=== PATIENT | female | born 1980 | race Caucasian/White ===

== ENCOUNTER 2016-06-01 17:56 | Inpatient (IN) | payer BC ==
[~2016-06-01] VITALS: Ht 167.6 cm; Wt 68.0 kg
[2016-06-01] VITALS (22 sets, daily range): BP systolic 122; BP diastolic 76; PULSE 84–101; RESP 18; TEMP 97.8
[2016-06-01] MEDS: LACTATED RINGER'S 1000 ML INJ 1,000 ML IV SCH (18:00)
[2016-06-01 19:56] LABS: AUTOMATED NEUTROPHIL # 7.5 TH/MM3 (1.8-7.7); BASOPHIL % 0.4 % (0.0-2.0); EOSINOPHIL # 0.1 TH/MM3 (0-0.4); EOSINOPHIL % 1.5 % (0.0-4.0); HEMATOCRIT 41.5 % (35.0-46.0); HEMO FLAGS DIFF FINAL; LYMPH % 17.3 % (9.0-44.0); LYMPHOCYTE # 1.7 TH/MM3 (1.0-4.8); MEAN CELL VOLUME 92.6 FL (80.0-100.0); MEAN CORPUSCULAR HEMOGLOBIN 32.5 PG (27.0-34.0); MONO % 6.1 % (0.0-8.0); NEUT % 74.7 % (16.0-70.0); PLATELET COUNT 109 TH/MM3 (150-450); RED BLOOD COUNT 4.48 MIL/MM3 (4.00-5.30); RED CELL DISTRIBUTION WIDTH 13.3 % (11.6-17.2)
[2016-06-01] MEDS ORDERED: FOLI5CAP PO (20:02)
[2016-06-01] MEDS ORDERED: PREN29TA PO (20:02)
[2016-06-01 20:03] LABS: BACTERIA, URINE RARE /hpf; BLOOD, URINE NEG (NEG); COMMENT (UR) CULT NOT INDICATED; CULTURE IF INDICATED CULT NOT INDICATED; GLUCOSE,URINE NEG (NEG); KETONE, URINE NEG (NEG); MUCUS URINE FEW /lpf (OCC); NITRITE,URINE NEG (NEG); PH, URINE 6.5 (5.0-8.5); SQUAMOUS EPITHELIAL CELL URINE <1 /hpf (0-5); URINE COLOR LIGHT-YELLOW (YELLW/STRAW)
--- NOTE | 2016-06-01 20:13 | HHI.HP ---
HPI Chief Complaint post due, for labor induction Date Seen: Jun 01, 2016 Time Seen: 20:00 Travel History International Travel<30 Days: No Contact w/Intl Traveler<30Days: No Known Affected Area: No History of Present Illness HPI 36 yo with EDC 05/29/16 by 8 wk sonogram, presents to L&D for scheduled post term induction. Pt's has been complicated by limb reduction of left arm (no L hand, short radius and ulna), no other abnormalities noted. Pt was seen by MFM, declined amniocentesis, cfdna was negative as was msAFP. Per MFM, suspect early amniotic band that resolved. echo wnl as has been growth, testing beginning at 36 weeks has been reassuring. Pt had been on Celexa prior to finding out she was but stopped in early first trimester once had positive test. Fetus is female. Pt c/o some pelvic pressure and cramps but no regular contractions, no VB or LOF. Endorses good movement. Only other significant history is advanced maternal age, varicella non-immune, and anterior accessory placental lobe (posterior placenta). Para: 0 : 1 Last Menstrual Period: Aug 30, 2015 Miscarriage: 0 : 0 History Past Medical History Narrative Medical history of anxiety varicella non-immune advanced maternal age in Obstetric History Obstetric History G1 = current, female, known L upper extremity limb reduction Past Surgical History Narrative Surgical rhinoplasty, wisdom teeth, dysplastic nevi (skin biopsy) Family History Family History: Negative Social History Alcohol Use: No Tobacco Use: No Substance Abuse: No Review of Systems General / Constitutional: Weight Gain, No: Fever, Chills, Other Eyes: No: Diploplia, Blurred Vision, Visual changes, Pain, Photophobia HENT: No: Headaches, Vertigo, Lightheadedness Cardiovascular: No: Irregular Rhythm, Chest Pain or Discomfort, Palpitations, Tachycardia, Syncope, Varicosities, Edema, Cyanosis Respiratory: No: Cough, Short of Breath, Other Gastrointestinal: No: Nausea, Vomiting, Diarrhea Genitourinary: Pelvic Pain (pressure), No: Decreased Urinary Output, Oliguria Musculoskeletal: No: Limited ROM, Weakness, Cramping, Edema, Pain Skin: No Rash, No Itching, No Dryness, No Lumps, No Change in Pigmentation, No Change in Nails, No Alopecia, No Lesions Neurologic: No: Weakness, Dizziness, Syncope, Focal Abnormalities, Coordination Problem, Headache, Slurred Speech, Seizures Psychiatric: No: Depression, Suicidal Ideations, Homicidal Ideation Endocrine: No: Heat Intolerance, Cold Intolerance, Polydipsia, Polyuria, Other Physical Exam Narrative GENERAL: Well-nourished, well-developed patient. SKIN: Warm and dry. HEAD: Normocephalic and atraumatic. EYES: No scleral icterus. No injection or drainage. ENT: No nasal drainage noted. Mucous membranes pink. Airway patent. NECK: Supple, trachea midline. No JVD. CARDIOVASCULAR: Regular rate and rhythm without murmurs, gallops, or rubs. RESPIRATORY: Breath sounds equal bilaterally. No accessory muscle use. BREASTS: deferred. ABDOMEN/GI: Abdomen soft, non-tender, bowel sounds present, no rebound, no guarding Gravid to [40] weeks size Fundal Height: [40] GENITOURINARY: External Genitalia: intact and normal in appearance Cervix: [mid] Dilatation: [1-2] Effacement: [50] Station: [-2] Presentation: [vtx] Membranes: [intact] Uterine Contractions: [irritability] FHT's: Category: [I] Baseline: [120s-130s] Reactive: [y] Variability: [y] Decels: [n] EXTREMITIES: No cyanosis or edema. BACK: Nontender without obvious deformity. No CVA tenderness. NEUROLOGICAL: Awake and alert. Motor and sensory grossly within normal limits. Five out of 5 muscle strength in all muscle groups. Normal speech. Data Data Vital Signs Reviewed: Yes Orders Diet Regular Basic (06/01/16 Dinner) Diet Liquid (06/02/16 Breakfast) Activity Oob Ad Carin (06/01/16 19:44) ^ Labor Induction (06/01/16 19:44) ^ Vaginal Insert (06/01/16 19:44) ^ Vaginal Lavage (06/01/16 19:44) ^ Heart (06/01/16 19:44) Code Status (06/01/16 19:44) Vital Signs (Adult) .Per protocol (06/01/16 19:44) Activity Oob Ad Carin (06/01/16 19:44) ^ Heart (06/01/16 19:44) ^ Amnioinfusion (06/01/16 19:44) Urinary Catheter Management .ONCE (06/01/16 19:44) Complete Blood Count With Diff (06/01/16 19:44) Hold Clot (06/01/16 19:44) Abo/Rh Blood Type (06/01/16 19:44) Urinalysis - C+S If Indicated (06/01/16 19:44) Resp Oxygen Non Rebreathe Mask (06/01/16 ) ^ Epidural / Intrathecal Infus (06/01/16 19:44) Specimen To Be Collected PRN (06/01/16 19:44) Labs Laboratory Tests Test 06/01/16 18:15 White Blood Count 10.0 Red Blood Count 4.48 Hemoglobin 14.5 Hematocrit 41.5 Mean Corpuscular Volume 92.6 Mean Corpuscular Hemoglobin 32.5 Mean Corpuscular Hemoglobin 35.0 Concent Red Cell Distribution Width 13.3 Platelet Count 109 Mean Platelet Volume 11.1 Neutrophils (%) (Auto) 74.7 Lymphocytes (%) (Auto) 17.3 Monocytes (%) (Auto) 6.1 Eosinophils (%) (Auto) 1.5 Basophils (%) (Auto) 0.4 Neutrophils # (Auto) 7.5 Lymphocytes # (Auto) 1.7 Monocytes # (Auto) 0.6 Eosinophils # (Auto) 0.1 Basophils # (Auto) 0.0 CBC Comment DIFF FINAL Differential Comment Assessment/Plan Problem List: (1) Post term over 40 weeks (2) Labor and delivery indication for care or intervention (3) complicated by limb abnormality Assessment and Plan 36 yo with EDC 05/29/16, admit for postterm labor induction 1) IOL: r/b/a d/w pt including risk of failure, AQA, pt desires labor induction ; start with cervidil overnight, AROM/pitocin as needed; Cat I tracing currently 2) known L upper limb reduction: normal genetic testing, normal ECHO , no other abnormalities; s/p MFM consult; suspect early amniotic band that resolved; reassuring testing and growth throughout 3) GBS neg 4) AMA: neg cfDNA, neg msAFP, normal echo, abnormal L upper arm, absent hand, reduced radius & ulna 5) status: female, vertex, posterior placenta with anterior accessory lobe , Cat I tracing currently; most recent EFW on u/s 49%tile at 36 wks Discharge Planning routine for 2 days Mavis Rea MD Jun 01, 2016 20:13
[2016-06-01] MEDS ORDERED: ZOLPIDEM TARTRATE 5 MG TAB PO PRN (20:15)
[2016-06-01] MEDS ORDERED: DINOPROSTONE 10 MG INSERT-LEAVE FOR 12 HOURS VAGINAL ONE (20:15)
[2016-06-01] MEDS ORDERED: NS 1000 ML XX PRN (20:15)
[2016-06-01] MEDS ORDERED: MINERAL OIL 10 ML VIAL TOPICAL PRN (20:30)
[2016-06-01] MEDS ORDERED: OXYTOCIN 30 UNITS 500ML PREMIX IV ONE (20:30)
[2016-06-01] MEDS: LACTATED RINGER'S 1000 ML IV SCH (20:30)
[2016-06-01] MEDS ORDERED: LIDOCAINE HCL 1% 50 ML VIAL I-DERMAL PRN (20:30)
[2016-06-01] MEDS ORDERED: NS 1000 ML IV PRN (20:30)
[2016-06-01] MEDS ORDERED: LIDOCAINE HCL 1% 50 ML VIAL INFIL PRN (20:30)
[2016-06-01] MEDS ORDERED: NS 500 ML BOLUS IV PRN (20:30)
[2016-06-01] MEDS ORDERED: CITRIC ACID-SODIUM CITRATE LIQ 30 ML UDC PO SCH (20:30)
[2016-06-01] MEDS ORDERED: LACTATED RINGER'S 1000 ML BOLUS IV PRN (20:30)
[2016-06-01] MEDS ORDERED: ONDANSETRON HCL 4 MG/2 ML VIAL IV PRN (20:30)
[2016-06-02] VITALS (138 sets, daily range): BP systolic 94–138; BP diastolic 49–96; PULSE 68–115; RESP 16–18; TEMP 97.5–98.9
[2016-06-02] MEDS: LACTATED RINGER'S 1000 ML INJ 1,000 ML IV SCH ×2 (03:43→16:00)
--- NOTE | 2016-06-02 08:55 | PD.LABORPN ---
Subjective Subjective feeling more intense contractions overnight with cervidil but still irregular, pain 4/10; no LOF, VB, good FM Objective Vital Signs Vital Signs Date Time Temp Pulse Resp B/P Pulse Ox O2 Delivery O2 Flow Rate FiO2 06/02/16 07:30 90 06/02/16 07:29 97.8 06/02/16 07:20 86 06/02/16 07:15 84 06/02/16 07:12 88 113/77 06/02/16 07:10 87 06/02/16 07:05 71 06/02/16 07:00 76 06/02/16 06:10 74 06/02/16 06:05 68 06/02/16 06:00 77 06/02/16 05:25 74 06/02/16 05:20 75 06/02/16 05:15 75 06/02/16 04:09 18 06/02/16 03:15 18 06/02/16 01:38 18 Objective Pelvic Exam: Cervix: [post] Dilatation: [3-4] Effacement: [70] Station: [-1] Presentation: [vtx] Membranes: AROM'd clear this check Uterine Contractions: [q3-4 min] FHT's: Category: [I] Baseline: [130s-140s] Reactive: [y] Variability: [y] Decels: [n] Assessment/Plan Problem List: (1) Post term over 40 weeks (2) Labor and delivery indication for care or intervention (3) complicated by limb abnormality Assessment and Plan 36 yo G1 at 40w4d admit for postdates IOL 1) IOL: s/p cervidil overnight with good cervical change, AROM'd this check, plan pitocin as needed 2) fetus with known L upper limb reduction: s/p MFM consult, suspect early amniotic band that resolved, L arm missing hand & limited radius/ulna; normal testing, normal ECHO, negative cfDNA & msAFP 3) AMA: as above 4) GBS neg 5) status: female, vertex, Cat I tracing Mavis Rea MD Jun 02, 2016 08:55
[2016-06-02] MEDS ORDERED: OXYTOCIN 30 UNITS-500ML PREMIX 500 ML IV SCH (09:00)
[2016-06-02] MEDS ORDERED: fentaNYL 2MCG-BUPIV 0.125% INJ 100 ML ONE (10:54)
[2016-06-02] MEDS: LACTATED RINGER'S 1000 ML IV SCH (11:06)
[2016-06-02] MEDS ORDERED: ePHEDrine/NS 25 MG/5 ML SYR ONE (11:57)
--- NOTE | 2016-06-02 12:34 | PD.LABORPN ---
Subjective Subjective was feeling intense pain with contractions, improved s/p epidural Objective Vital Signs Vital Signs Date Time Temp Pulse Resp B/P Pulse Ox O2 Delivery O2 Flow Rate FiO2 06/02/16 12:25 96 129/82 06/02/16 12:20 95 118/73 06/02/16 12:15 97 06/02/16 12:15 94 122/73 06/02/16 12:15 85 06/02/16 12:10 95 06/02/16 12:10 95 06/02/16 12:10 95 124/71 06/02/16 12:05 89 138/96 06/02/16 12:05 97 06/02/16 12:05 88 06/02/16 12:00 94 135/85 06/02/16 12:00 93 06/02/16 11:55 84 06/02/16 11:55 84 06/02/16 11:50 85 06/02/16 11:50 84 06/02/16 11:45 93 06/02/16 11:45 88 06/02/16 11:45 87 131/88 06/02/16 11:40 87 06/02/16 11:40 87 06/02/16 11:37 90 132/83 06/02/16 11:35 82 06/02/16 11:35 86 06/02/16 11:25 82 06/02/16 11:25 82 06/02/16 11:20 89 06/02/16 11:20 88 06/02/16 11:15 88 112/66 06/02/16 11:15 87 06/02/16 11:08 18 06/02/16 11:05 93 119/71 06/02/16 11:05 98 06/02/16 11:02 112 06/02/16 11:00 93 06/02/16 10:40 91 06/02/16 10:35 96 06/02/16 10:30 98 06/02/16 10:25 91 18 06/02/16 10:21 102 124/86 06/02/16 10:20 100 06/02/16 10:15 96 06/02/16 09:40 94 06/02/16 09:35 95 06/02/16 09:30 96 06/02/16 09:25 90 06/02/16 09:20 96 06/02/16 09:10 94 06/02/16 09:07 106 121/78 06/02/16 09:06 98.0 18 06/02/16 09:05 104 06/02/16 09:00 90 06/02/16 08:55 89 06/02/16 08:50 88 06/02/16 08:45 101 06/02/16 07:30 90 06/02/16 07:29 97.8 06/02/16 07:20 86 06/02/16 07:15 84 06/02/16 07:12 88 113/77 06/02/16 07:10 87 06/02/16 07:05 71 06/02/16 07:00 76 06/02/16 06:10 74 06/02/16 06:05 68 06/02/16 06:00 77 06/02/16 05:25 74 06/02/16 05:20 75 06/02/16 05:15 75 Objective Pelvic Exam: Cervix: [post] Dilatation: [5-6, stretchy] Effacement: [70] Station: [-1] Presentation: [vtx] Membranes: [AROM'd this AM clear] Uterine Contractions: [q2 min] FHT's: Category: [I] Baseline: [130s] Reactive: [y] Variability: [y] Decels: [n] Assessment/Plan Problem List: (1) Post term over 40 weeks (2) Labor and delivery indication for care or intervention (3) complicated by limb abnormality Assessment and Plan progressing well in labor continue to augment as needed s/p epidural anticipate Mavis Rea MD Jun 02, 2016 12:34
[2016-06-02] MEDS ORDERED: NO SYSTEM NARCOTICS PRN (13:00)
[2016-06-02] MEDS ORDERED: ePHEDrine/NS 25 MG/5 ML SYR IV PRN (13:00)
[2016-06-02] MEDS ORDERED: DO NOT ADMINISTER ANTICOAGULANTS PRN (13:00)
[2016-06-02] MEDS ORDERED: fentaNYL 2MCG-BUPIV 0.125% 100 ML EPIDURAL SCH (13:00)
[2016-06-02] MEDS ORDERED: DIPHTH/TETANUS/ACEL PERTUSSIS (BOOSTER) 0.5 ML VIAL/PFS IM ONE (16:00)
[2016-06-02] MEDS ORDERED: MEASLES, MUMPS, RUBELLA VACCINE 0.5 ML VIAL SQ ONE (16:00)
[2016-06-02] MEDS ORDERED: IBUP-232 PO (21:01)
[2016-06-02] MEDS ORDERED: PERI8.6T PO (21:01)
--- NOTE | 2016-06-02 21:49 | HHI.DCPOC ---
Discharge Care Plan Diagnosis: (1) (spontaneous vaginal delivery) Your Health Problems Are: Vaginal delivery Report Symptoms to Your Doctor -Temperate above 100.5 degrees -Redness, of incision or excessive or foul smelling drainage -Unusual pain or calf pain -Increased vaginal bleeding -Painful or difficulty urinating -Feelings of extreme sadness or anxiety after 2 weeks Goals to Promote Your Health * To prevent worsening of your condition and complications * To maintain your health at the optimal level Directions to Meet Your Goals Take your medications as prescribed Follow your dietary instruction Follow activity as directed Ensure plenty of rest for recovery Drink fluids for hydration Keep your appointments as scheduled Take your immunizations and boosters as scheduled If your symptoms worsen call your PCP, if no PCP go to Urgent Care Center or Emergency Room Smoking is Dangerous to Your Health. Avoid second hand smoke Call the 24-hour crisis hotline for domestic abuse at Mavis Rea MD Jun 02, 2016 21:49
--- NOTE | 2016-06-02 21:53 | PD.OB.DELI ---
Delivery Date: Jun 02, 2016 Anesthesia: Epidural Episiotomy: Midline Vaginal Delivery: Normal Presentation: Occiput anterior Nuchal Cord: None Delayed cord clamping (45 sec): Yes : Female, Single One Minute : 9 Five Minute : 9 Weight: pending Infant Care: Spontaneous crying, Responded to stimulation, Other (see Peds notes) Placenta: Spontaneous delivery, Intact (bilobed with cord noted to be inserted near placental margin), 3 vessel cord Laceration: Episiotomy (midline 2nd degree perineal) Repair: Chromic running Additional Information EBL 300 mL infant with known L upper limb reduction; mobile with palpable upper 1/3 of radius/ulna on delivery, normal mobility of elbow Mavis Rea MD Jun 02, 2016 21:53
[2016-06-02] MEDS ORDERED: ZOLPIDEM TARTRATE 5 MG TAB PO PRN (22:00)
[2016-06-02] MEDS ORDERED: BENZOCAINE 20% TOPICAL SPRAY 60 ML CAN TOPICAL PRN (22:00)
[2016-06-02] MEDS ORDERED: ACETAMINOPHEN 325 MG TAB PO PRN (22:00)
[2016-06-02] MEDS ORDERED: SODIUM CHLORIDE 0.9% FLUSH 10 ML FLUSH IV FLUSH SCH (22:00)
[2016-06-02] MEDS ORDERED: WITCH HAZEL 50%/GLYCERIN 12.5% 40 PAD JAR TOPICAL PRN (22:00)
[2016-06-02] MEDS ORDERED: ALUMINUM/MAGNESIUM/SIMETH 30 ML CUP PO PRN (22:00)
[2016-06-02] MEDS ORDERED: ONDANSETRON ODT 4 MG TAB PO PRN (22:00)
[2016-06-02] MEDS ORDERED: SODIUM CHLORIDE 0.9% FLUSH 10 ML FLUSH IV FLUSH PRN (22:00)
[2016-06-03] MEDS: IBUPROFEN 600 MG TAB PO PRN ×4 (00:39→19:28)
[2016-06-03 01:30] VITALS: BP 102/69; PULSE 96; RESP 18; TEMP 97.9
[2016-06-03] MEDS: DOCUSATE SODIUM 50 MG/SENNA 8.6 MG TAB PO PRN (01:46)
[2016-06-03 08:00] VITALS: BP 87/61; PULSE 81; RESP 16; TEMP 97.9
--- NOTE | 2016-06-03 11:28 | HHI.OB ---
Subjective Post Day: 1 Remarks PT feeling weak and fatigued. Noticed she did not feel well when up to shower. She has soaked 1.5 pads today; more than her usual menses. Denies palpitations or sob. Amenable to iron infusion or rbc if necessary Objective Vitals/I&O Vital Signs Date Time Temp Pulse Resp B/P Pulse Ox O2 Delivery O2 Flow Rate FiO2 06/03/16 08:00 97.9 81 16 87/61 06/03/16 01:30 96 18 102/69 06/03/16 01:30 97.9 06/02/16 23:11 18 06/02/16 23:00 18 06/02/16 22:45 18 06/02/16 22:30 18 06/02/16 22:27 108 121/64 06/02/16 22:11 18 06/02/16 22:00 18 06/02/16 21:45 98.7 18 06/02/16 21:31 115 103/49 06/02/16 20:09 18 06/02/16 20:05 98 06/02/16 20:00 100 06/02/16 20:00 104 122/80 06/02/16 19:31 98.7 18 06/02/16 19:30 100 123/86 06/02/16 19:30 94 06/02/16 19:14 18 06/02/16 19:10 100 06/02/16 19:05 90 06/02/16 19:00 92 06/02/16 18:40 100 06/02/16 18:37 98.7 18 06/02/16 18:35 109 06/02/16 18:30 102 06/02/16 18:30 98 113/73 06/02/16 18:30 100 06/02/16 18:25 106 06/02/16 18:25 102 06/02/16 18:20 91 06/02/16 18:20 91 06/02/16 18:15 89 06/02/16 18:15 89 06/02/16 18:10 100 06/02/16 18:10 100 06/02/16 18:05 99 06/02/16 18:05 97 06/02/16 18:00 84 114/79 06/02/16 18:00 96 06/02/16 18:00 85 06/02/16 17:25 104 06/02/16 17:25 105 06/02/16 17:20 95 06/02/16 17:20 95 06/02/16 17:15 101 06/02/16 17:15 104 06/02/16 17:10 96 06/02/16 17:10 95 06/02/16 17:05 95 06/02/16 17:05 101 06/02/16 17:00 88 06/02/16 17:00 91 06/02/16 17:00 89 113/84 06/02/16 16:40 97 06/02/16 16:35 89 115/73 06/02/16 16:35 95 06/02/16 16:30 85 06/02/16 16:30 95 116/70 06/02/16 16:10 91 06/02/16 16:05 92 06/02/16 16:03 97.5 18 06/02/16 16:00 89 06/02/16 15:59 90 112/76 06/02/16 15:55 95 06/02/16 15:50 95 06/02/16 15:45 89 06/02/16 15:40 91 06/02/16 15:35 80 06/02/16 15:30 91 94/60 06/02/16 15:30 90 06/02/16 15:25 91 06/02/16 15:20 80 06/02/16 15:15 83 06/02/16 15:05 85 06/02/16 15:00 86 94/56 06/02/16 15:00 91 06/02/16 14:55 91 06/02/16 14:50 91 06/02/16 14:45 85 06/02/16 14:30 78 06/02/16 14:30 82 112/70 06/02/16 14:25 86 06/02/16 14:20 76 06/02/16 14:15 79 06/02/16 14:10 81 06/02/16 14:05 84 06/02/16 14:00 79 111/67 06/02/16 14:00 78 06/02/16 13:55 91 06/02/16 13:50 84 06/02/16 13:45 16 06/02/16 13:45 86 06/02/16 13:40 81 06/02/16 13:35 86 06/02/16 13:30 82 111/67 06/02/16 13:30 81 06/02/16 13:25 84 06/02/16 13:20 79 06/02/16 13:15 86 06/02/16 13:15 85 109/73 06/02/16 13:15 86 06/02/16 13:10 82 06/02/16 13:10 83 06/02/16 13:05 81 06/02/16 13:05 81 06/02/16 13:00 83 119/79 06/02/16 13:00 86 06/02/16 13:00 81 06/02/16 12:57 98.9 06/02/16 12:57 98.4 06/02/16 12:55 87 06/02/16 12:55 87 06/02/16 12:50 83 06/02/16 12:50 83 06/02/16 12:45 87 06/02/16 12:45 89 121/76 06/02/16 12:45 86 06/02/16 12:40 100 119/78 06/02/16 12:40 105 06/02/16 12:40 104 06/02/16 12:35 104 06/02/16 12:35 104 118/78 06/02/16 12:35 100 06/02/16 12:30 97 06/02/16 12:30 96 06/02/16 12:30 98 118/74 06/02/16 12:25 96 129/82 06/02/16 12:25 96 06/02/16 12:25 91 06/02/16 12:20 95 06/02/16 12:20 95 118/73 06/02/16 12:20 92 06/02/16 12:15 97 06/02/16 12:15 94 122/73 06/02/16 12:15 85 06/02/16 12:10 95 06/02/16 12:10 95 06/02/16 12:10 95 124/71 06/02/16 12:05 89 138/96 06/02/16 12:05 97 06/02/16 12:05 88 06/02/16 12:00 94 135/85 06/02/16 12:00 93 06/02/16 11:55 84 06/02/16 11:55 84 06/02/16 11:50 85 06/02/16 11:50 84 06/02/16 11:45 93 06/02/16 11:45 88 06/02/16 11:45 87 131/88 06/02/16 11:40 87 06/02/16 11:40 87 06/02/16 11:37 90 132/83 06/02/16 11:35 82 06/02/16 11:35 86 06/02/16 11:25 82 06/02/16 11:25 82 Objective Remarks GENERAL: Well-nourished, well-developed patient. pale CARDIOVASCULAR: Regular rate and rhythm without murmurs, gallops, or rubs. RESPIRATORY: Breath sounds equal bilaterally. No accessory muscle use. ABDOMEN/GI: Abdomen soft, non-tender. Fundus: Firm, non-tender at umbilicus - 2. GENITOURINARY: Light to moderate bleeding. EXTREMITIES: No cyanosis or edema, non-tender, without signs of DVT. Medications and IVs Current Medications Medications (Trade) Dose Ordered Sig/Amada Route Start Time Stop Time Status Last Admin (Muri-Lube Oil) 10 ml UNSCH PRN TOPICAL 06/01/16 20:30 (NS Flush) 2 ml BID IV FLUSH 06/02/16 22:00 (NS Flush) 2 ml UNSCH PRN IV FLUSH 06/02/16 22:00 (Tylenol) 650 mg Q4H PRN PO 06/02/16 22:00 06/03/16 07:33 (Motrin) 600 mg Q6H PRN PO 06/02/16 22:00 06/03/16 07:33 (Americaine 20% Top Spr) 1 spray Q4H PRN TOPICAL 06/02/16 22:00 06/03/16 01:46 (Tucks Pads) 1 applic QID PRN TOPICAL 06/02/16 22:00 06/03/16 01:46 (Stephanie-Colace) 2 tab Q12H PRN PO 06/02/16 22:00 06/03/16 01:46 (Ambien) 5 mg HS PRN PO 06/02/16 22:00 (Mag-Al Plus Susp Liq) 15 ml Q8H PRN PO 06/02/16 22:00 (Zofran Odt) 4 mg Q6H PRN PO 06/02/16 22:00 Assessment/Plan Problem List: (1) Post term over 40 weeks (2) Labor and delivery indication for care or intervention (3) complicated by limb abnormality Assessment and Plan 36 yo ppd 1 - pt wiht low bp earlier today, feeling weak. will repeat bp and check h/h. admit hemoglobin 14. - cont supportive care - baby with limb reduction- doing well per parents' report Discharge Planning routine for 2 days Ade Rodrigez MD Jun 03, 2016 11:28
[2016-06-03 11:32] VITALS: BP 102/68; PULSE 80; RESP 16
[2016-06-04] MEDS: IBUPROFEN 600 MG TAB PO PRN ×2 (02:17→08:40)
[2016-06-04 05:58] LABS: HEMATOCRIT 35.3 % (35.0-46.0)
[2016-06-04 08:00] VITALS: BP 121/72; PULSE 90; RESP 15; TEMP 98.1
--- NOTE | 2016-06-04 08:06 | HHI.OB ---
Subjective Post Day: 2 Remarks doing well, Hg=12 Objective Vitals/I&O Vital Signs Date Time Temp Pulse Resp B/P Pulse Ox O2 Delivery O2 Flow Rate FiO2 06/03/16 11:32 80 16 06/03/16 11:32 102/68 Objective Remarks GENERAL: Well-nourished, well-developed patient. pale CARDIOVASCULAR: Regular rate and rhythm without murmurs, gallops, or rubs. RESPIRATORY: Breath sounds equal bilaterally. No accessory muscle use. ABDOMEN/GI: Abdomen soft, non-tender. Fundus: Firm, non-tender at umbilicus - 2. GENITOURINARY: Light to moderate bleeding. EXTREMITIES: No cyanosis or edema, non-tender, without signs of DVT. Medications and IVs Current Medications Medications (Trade) Dose Ordered Sig/Amada Route Start Time Stop Time Status Last Admin (Muri-Lube Oil) 10 ml UNSCH PRN TOPICAL 06/01/16 20:30 (NS Flush) 2 ml BID IV FLUSH 06/02/16 22:00 (NS Flush) 2 ml UNSCH PRN IV FLUSH 06/02/16 22:00 (Tylenol) 650 mg Q4H PRN PO 06/02/16 22:00 06/03/16 07:33 (Motrin) 600 mg Q6H PRN PO 06/02/16 22:00 06/04/16 02:17 (Americaine 20% Top Spr) 1 spray Q4H PRN TOPICAL 06/02/16 22:00 06/03/16 01:46 (Tucks Pads) 1 applic QID PRN TOPICAL 06/02/16 22:00 06/03/16 01:46 (Stephanie-Colace) 2 tab Q12H PRN PO 06/02/16 22:00 06/03/16 01:46 (Ambien) 5 mg HS PRN PO 06/02/16 22:00 (Mag-Al Plus Susp Liq) 15 ml Q8H PRN PO 06/02/16 22:00 (Zofran Odt) 4 mg Q6H PRN PO 06/02/16 22:00 06/04/16 02:20 Assessment/Plan Problem List: (1) Post term over 40 weeks (2) Labor and delivery indication for care or intervention (3) complicated by limb abnormality (4) (spontaneous vaginal delivery) Assessment and Plan 36 yo ppd 2 - cont supportive care - baby with limb reduction- doing well per parents' report Discharge Planning routine for 2 days Attending Attestation pt seen by me Shannon Bowman MD Jun 04, 2016 08:06
[2016-06-04] MEDS ORDERED: ONDA4TAB7 PO (08:07)
[2016-06-04] MEDS: DOCUSATE SODIUM 50 MG/SENNA 8.6 MG TAB PO PRN (08:40)
[2016-06-04 10:54] VITALS: RESP 18
== END 2016-06-04 13:11 | disposition home or self-care (01) | DRG 775 ==
LOC: H2EB 17:56 → H1EA 06-03 01:05
PROVIDERS: ADMIT Obstetrics & Gynecology; ATTEND Obstetrics & Gynecology
PROC: 3E0P7GC Introduction of Other Therapeutic Substance into Female Reproductive, Via Natural or Artificial Opening (ICD-10-PCS; 2016-06-01)
PROC: 10E0XZZ Delivery of Products of Conception, External Approach (ICD-10-PCS; principal; 2016-06-02)
PROC: 0W8NXZZ Division of Female Perineum, External Approach (ICD-10-PCS; 2016-06-02)
PROC: 10907ZC Drainage of Amniotic Fluid, Therapeutic from Products of Conception, Via Natural or Artificial Opening (ICD-10-PCS; 2016-06-02)
PROC: 00HU33Z Insertion of Infusion Device into Spinal Canal, Percutaneous Approach (ICD-10-PCS; 2016-06-02)
PROC: 3E0R3CZ (ICD-10-PCS; 2016-06-02)
DX: O48.0 Post-term pregnancy (principal); O35.8XX0 Maternal care for other (suspected) fetal abnormality and damage, not applicable or unspecified; Z37.0 Single live birth; Z3A.40 40 weeks gestation of pregnancy; R53.1 Weakness; R03.1 Nonspecific low blood-pressure reading; Z23 Encounter for immunization
CPT/HCPCS: 81001; 85014; 85018; 85025; 86900; 86901; 88307; 90707; J2405; J2590; J7120

== ENCOUNTER 2016-06-08 12:37 | Emergency (ER) | payer BC ==
[~2016-06-08 12:37] MED LIST: IBUP-232 PO; ONDA4TAB7 PO; PERI8.6T PO; PREN29TA PO
[2016-06-08 13:10] VITALS: PULSE 83; O2SAT 100
[2016-06-08 13:15] VITALS: PULSE 85; O2SAT 100
--- NOTE | 2016-06-08 13:27 | PD ---
HPI Chief Complaint Dizziness that began last night and has continued to this morning Date Seen: Jun 08, 2016 Time Seen: 13:00 Travel History International Travel<30 Days: No Contact w/Intl Traveler<30Days: No Known Affected Area: No History of Present Illness HPI 36-year-old who is one-week from an uncomplicated vaginal delivery that occurred June 02, 2016. Low platelets were noted at the time of delivery but this did not affect the procedure nor did affect the ability for the patient to get an epidural. Normal course otherwise. Her only complaint is a little bit of upper respiratory congestion and a mild headache and she is taken Benadryl on 2 occasions one time day before yesterday and again yesterday morning. She feels that the dizziness is worse when she stands up or turns her head quickly. Denies respiratory difficulties chest pain, denies heavy vaginal bleeding, denies fever. She does have fullness of both breasts and she is no longer breast-feeding. Para: 1 : 1 History Past Medical History Medical History: Denies Significant Hx Obstetric History Obstetric History Recent spontaneous vaginal delivery normal blood loss at delivery Past Surgical History Surgical History: No Previous Surgery Family History Family History: Negative Social History Alcohol Use: No Tobacco Use: No Substance Abuse: No Allergies-Medications (Allergen,Severity, Reaction): Coded Allergies: Amoxicillin (Verified Allergy, Intermediate, Anaphylaxis, 06/01/16) Lortab (Verified Allergy, Mild, Nausea/Vomiting, 06/01/16) Sulfa (Verified Allergy, Mild, Nausea/Vomiting, 06/01/16) Uncoded Allergies: late (Allergy, Unknown, Localized Rash, 06/02/16) Home Meds Active Scripts Ondansetron Odt 4 Mg Tab4 Mg PO Q6H PRN (NAUSEA OR VOMITING) #10 TAB Ref 0 Prov:Shannon Bowman MD 06/04/16 Sennosides-Docusate Sodium (Stephanie-Colace)8.6-50 Mg Tab1 Tab PO BID PRN ( Constipation) #28 TAB Ref 1 Prov:Mavis Rea MD 06/02/16 Ibuprofen 600 Mg [id number] Mg PO Q6H PRN (CRAMPS) #30 TAB Ref 1 Prov:Mavis Rea MD 06/02/16 Reported Medications Vit-Iron Carbonyl ( Plus Iron 29-1 mg)1 Tab Tab1 Tab PO DAILY #30 TAB Ref 0 06/01/16 Discontinued Reported Medications Folic Acid 5 Mg Cap5 Mg PO DAILY Ref 0 06/01/16 Review of Systems Except as stated in HPI: all other systems reviewed are Neg Physical Exam Narrative GENERAL: Well-nourished, well-developed patient. SKIN: Warm and dry. HEAD: Normocephalic and atraumatic. EYES: No scleral icterus. No injection or drainage. ENT: No nasal drainage noted. Mucous membranes pink. Airway patent. NECK: Supple, trachea midline. No JVD. CARDIOVASCULAR: Regular rate and rhythm without murmurs, gallops, or rubs. RESPIRATORY: Breath sounds equal bilaterally. No accessory muscle use. BREASTS: Bilateral exam showed no masses , no retractions, no nipple discharge. ABDOMEN/GI: Abdomen soft, non-tender, bowel sounds present, no rebound, no guarding Gravid to [-12 weeks] weeks size Fundal Height: [-] GENITOURINARY: Minimal vaginal lochia EXTREMITIES: No cyanosis or edema. BACK: Nontender without obvious deformity. No CVA tenderness. NEUROLOGICAL: Awake and alert. Motor and sensory grossly within normal limits. Five out of 5 muscle strength in all muscle groups. Normal speech. Data Data Orders Vital Signs (Adult) .ON ADMISSION (06/08/16 13:17) ^ Hydration (06/08/16 13:17) Cbc No Diff, Includes Plts (06/08/16 13:17) Basic Metabolic Panel (Bmp) (06/08/16 13:17) Labs Laboratory Tests Test 06/08/16 13:21 White Blood Count 7.2 TH/MM3 Red Blood Count 4.54 MIL/MM3 Hemoglobin 14.8 GM/DL Hematocrit 42.2 % Mean Corpuscular Volume 92.8 FL Mean Corpuscular Hemoglobin 32.6 PG Mean Corpuscular Hemoglobin 35.1 % Concent Red Cell Distribution Width 12.9 % Platelet Count 196 TH/MM3 Mean Platelet Volume 8.9 FL Sodium Level 140 MEQ/L Potassium Level 3.8 MEQ/L Chloride Level 103 MEQ/L Carbon Dioxide Level 28.3 MEQ/L Anion Gap 9 MEQ/L Blood Urea Nitrogen 17 MG/DL Creatinine 0.88 MG/DL Estimat Glomerular Filtration 73 ML/MIN Rate Random Glucose 85 MG/DL Calcium Level 9.3 MG/DL MDM Plan Dizziness most likely from central auditory vertigo. Patient will start on Zyrtec or Claritin Consider ENT referrral if necessary Diagnosis Diagnosis: Primary Impression: Dizziness Additional Impression: examination following vaginal delivery Disposition: 01 DISCHARGE HOME Milli Loja MD Jun 08, 2016 13:27
[2016-06-08 13:35] LABS: HEMATOCRIT 42.2 % (35.0-46.0); MEAN CELL VOLUME 92.8 FL (80.0-100.0); MEAN CORPUSCULAR HEMOGLOBIN 32.6 PG (27.0-34.0); MEAN CORPUSCULAR HGB CONC 35.1 % (32.0-36.0); PLATELET COUNT 196 TH/MM3 (150-450); RED BLOOD COUNT 4.54 MIL/MM3 (4.00-5.30); RED CELL DISTRIBUTION WIDTH 12.9 % (11.6-17.2); REVIEW FLAG FINAL; WHITE BLOOD COUNT 7.2 TH/MM3 (4.0-11.0)
[2016-06-08 13:56] LABS: BICARBONATE 28.3 MEQ/L (21.0-32.0); POTASSIUM 3.8 MEQ/L (3.5-5.1)
== END 2016-06-08 14:34 | disposition home or self-care (01) ==
LOC: HOBED 12:37
DX: H81.319 Aural vertigo, unspecified ear (principal)
CPT/HCPCS: 80048; 85027; 99283

== ENCOUNTER 2016-06-11 13:29 | Emergency (ER) | payer BC ==
[2016-06-11 13:31] VITALS: BP 138/71; PULSE 82; RESP 16; TEMP 97.8; O2SAT 100
--- NOTE | 2016-06-11 13:47 | PD ---
Physical Exam Date Seen by Provider: Jun 11, 2016 Time Seen by Provider: 13:45 Narrative 36 year old female presents to the emergency department for evaluation of persistent dizziness, nausea, headache since Tuesday morning. Patient is 1 week . She denies any complication with the vaginal delivery. Current pain is 3/10. Patient is awaiting bed placement. Data Data Last Documented VS Vital Signs Date Time Temp Pulse Resp B/P Pulse Ox O2 Delivery O2 Flow Rate FiO2 06/11/16 13:31 97.8 82 16 138/71 100 MDM Supervised Visit with NACHO: Isabela Moreira Jun 11, 2016 13:47
[2016-06-11] MEDS ORDERED: SODIUM CHLORIDE 0.9% FLUSH 10 ML FLUSH IVF PRN (14:00)
[2016-06-11] MEDS ORDERED: ONDANSETRON HCL 4 MG/2 ML VIAL IVP ONE (14:00)
[2016-06-11] MEDS ORDERED: LORA-474 PO (14:11)
[2016-06-11] MEDS ORDERED: ZOFR8TAB4 SL (14:11)
--- NOTE | 2016-06-11 14:13 | PD ---
HPI Chief Complaint: Dizziness Time Seen by Provider: 13:56 Travel History International Travel<30 days: No Contact w/Intl Traveler<30days: No Traveled to known affect area: No History of Present Illness HPI Patient is a 36-year-old female 8 days post-spontaneous here with complaint of vertigo. Patient states that she has had now 5 days of dizziness. Describes this as vertigo as though the world is spinning. She states that it is worse with any movement. She notes a mild associated headache with this. No fevers or chills. She did have an epidural during delivery, but notes no stiffness in the neck. Patient was seen in the OB emergency department earlier this week and had blood work with hemoglobin and electrolytes that were unremarkable. Patient was given prescription for Zofran and meclizine and has been using this and states that it helped some but her symptoms persist prompting ER visit. Headache is mild, throbbing. PFSH Past Medical History Medical History: Denies Significant Hx ?: Not Social History Alcohol Use: No Tobacco Use: No Allergies-Medications (Allergen,Severity, Reaction): Coded Allergies: Amoxicillin (Verified Allergy, Intermediate, Anaphylaxis, 06/01/16) Lortab (Verified Allergy, Mild, Nausea/Vomiting, 06/01/16) Sulfa (Verified Allergy, Mild, Nausea/Vomiting, 06/01/16) Uncoded Allergies: late (Allergy, Unknown, Localized Rash, 06/02/16) Reported Meds & Prescriptions Reported Meds & Active Scripts Active Zofran Odt (Ondansetron Odt) 8 Mg Tab 8 Mg SL Q8H PRN Ativan (Lorazepam) 1 Mg Tab 1 Mg PO Q4H PRN Ondansetron Odt 4 Mg Tab 4 Mg PO Q6H PRN Stephanie-Colace (Sennosides-Docusate Sodium) 8.6-50 Mg Tab 1 Tab PO BID PRN Ibuprofen 600 Mg Tab 600 Mg PO Q6H PRN Reported Plus Iron 29-1 mg ( Vit-Iron Carbonyl) 1 Tab Tab 1 Tab PO DAILY Review of Systems Except as stated in HPI: all other systems reviewed are Neg Physical Exam Narrative GENERAL: Well-appearing female in no acute distress holding head still with no movement SKIN: Focused skin assessment warm/dry. HEAD: Normocephalic. EYES: Pupils equal and round. No scleral icterus. No injection or drainage. ENT: No nasal bleeding or discharge. Mucous membranes pink and moist. TMs clear bilaterally. NECK: Full without nuchal rigidity CARDIOVASCULAR: Regular rate and rhythm. RESPIRATORY: No accessory muscle use. GASTROINTESTINAL: Abdomen soft, non-tender, nondistended. MUSCULOSKELETAL: No midline tenderness to palpation of the cervical, thoracic, lumbar spine. No erythema of the back at epidural site NEUROLOGICAL: Awake and alert. No obvious cranial nerve deficits. Motor grossly within normal limits. Normal speech. Reproducible symptoms with any head movement. PSYCHIATRIC: Appropriate mood and affect; insight and judgment normal. Data Data Last Documented VS Vital Signs Date Time Temp Pulse Resp B/P Pulse Ox O2 Delivery O2 Flow Rate FiO2 06/11/16 13:31 97.8 82 16 138/71 100 Orders Ondansetron Inj (Zofran Inj) (06/11/16 14:00) Sodium Chloride 0.9% Flush (Ns Flush) (06/11/16 14:00) Lorazepam Inj (Ativan Inj) (06/11/16 14:15) [facility] Medical Decision Making Medical Screen Exam Complete: Yes Emergency Medical Condition: Yes Medical Record Reviewed: Yes Differential Diagnosis 36-year-old female proximal to 8 days status post spontaneous here with complaint of vertigo. Patient describes her symptoms is classic vertiginous symptoms. She does have a mild associated headache with this, but normal neurologic examination. Patient electively holds her head still. My strong suspicion is for peripheral etiology of vertigo such as BPPV, labyrinthitis. She hasn't had any hearing loss to suggest Mnire's. Neuro exam is normal making [employer] source of vertigo unlikely. She had laboratory workup recently showing normal hemoglobin and electrolytes, ruling out anemia. Narrative Course Patient was given Ativan. Will be discharged home with continuation of Ativan, meclizine, Zofran and outpatient ENT follow-up. Diagnosis Primary Impression: BPPV (benign paroxysmal positional vertigo) Qualified Code: H81.10 - BPPV (benign paroxysmal positional vertigo), unspecified laterality Referrals: Ross Avila MD call for appointment Ear / Nose / Throat Specialist call for appointment Patient Instructions: Benign Paroxysmal Positional Vertigo (ED), General Instructions Additional Instructions: Zofran, meclizine as needed for vertigo. Ativan if symptoms persist. Follow- up with ENT as discussed. Med/Other Pt SpecificInfo: Prescription(s) given Scripts Ondansetron Odt (Zofran Odt)8 Mg Tab8 Mg SL Q8H PRN (NAUSEA OR VOMITING) #20 TAB Ref 0 Prov:Mely Shipley MD 06/11/16 Lorazepam (Ativan)1 Mg Tab1 Mg PO Q4H PRN (VERTIGO) #15 TAB Ref 0 Prov:Mely Shipley MD 06/11/16 Disposition: 01 DISCHARGE HOME Condition: Stable Mely Shipley MD Jun 11, 2016 14:13
[2016-06-11] MEDS ORDERED: LORazepam 2 MG/ML VIAL IM ONE (14:15)
[2016-06-11 14:31] VITALS: BP 132/89; PULSE 78; RESP 16; O2SAT 98
[2016-06-11] MEDS ORDERED: MECL-62 PO (14:36)
== END 2016-06-11 14:50 | disposition home or self-care (01) ==
LOC: NEPD 13:29
DX: O90.89 Other complications of the puerperium, not elsewhere classified (principal); H81.10 Benign paroxysmal vertigo, unspecified ear; R51 Headache
CPT/HCPCS: 96372; 99283; J2060